=== PATIENT | female | born 1995 | race Two or more races ===

== ENCOUNTER 2019-09-28 00:14 | Emergency (ER) | payer MEDICAID ==
[~2019-09-28] VITALS: Ht 154.9 cm; Wt 57.7 kg
--- NOTE | 2019-09-28 00:39 | NUR ---
Patient presents to ER c/o palpitations since tonight. Patient states she has been sick with the flu recently. Patient denies CP or SOB. Denies nausea. Patient is in NAD. Respirations even and unlabored.
[2019-09-28 01:02] LABS: ALBUMIN 3.7 g/dL (3.4-5.0); ANION GAP 5 mmol/L (5-15); CALCIUM 8.9 mg/dL (8.5-10.1); CHLORIDE 107 mmol/L (98-107)
[2019-09-28 01:08] LABS: ALANINE AMINOTRANSFERASE 36 U/L (12-78); ALKALINE PHOSPHATASE 99 U/L (45-117); BILIRUBIN,TOTAL 0.3 mg/dL (0.2-1.0); CREATININE 0.63 mg/dL (0.55-1.02); T4 (THYROXINE) 11.8 mcg/dL (4.8-13.9); TOTAL PROTEIN 7.6 g/dL (6.4-8.2)
[2019-09-28 01:12] LABS: BASOPHILS # (AUTO) 0.01 x10^3/uL (0-0.1); BASOPHILS % (AUTO) 0 % (0-1); EOSINOPHILS % (AUTO) 0 % (1-7); LYMPHOCYTES # (AUTO) 1.54 x10^3/uL (1-3.4); LYMPHOCYTES % (AUTO) 46 % (22-44); MD NO; MEAN CORPUSCULAR HEMOGLOBIN 28.7 pg (27.0-34.8); MEAN CORPUSCULAR HGB CONC 33.7 g/dL (32.4-35.8); MEAN PLATELET VOLUME 8.4 fL (7.4-10.4); MONOCYTES # (AUTO) 0.26 x10^3/uL (0.2-0.8); MONOCYTES % (AUTO) 8 % (2-9); NEUTROPHILS # (AUTO) 1.54 x10^3/uL (1.8-6.8); NEUTROPHILS % (AUTO) 46 % (42-75); PLATELET COUNT 166 x10^3/uL (130-400); RED BLOOD COUNT 4.87 x10^6/uL (3.82-5.3); RED CELL DISTRIBUTION WIDTH 13.2 % (9.6-15.2)
[2019-09-28] MEDS ORDERED: POTASSIUM CHLORIDE 20 MEQ TAB.ER.PRT ONE (01:23)
[2019-09-28 01:26] VITALS: BP 109/65
--- NOTE | 2019-09-28 01:28 | NUR ---
Meds admin per sep. Discharge instructions given. All questions and concerns addressed. Patient ambulatory with a steady gait. Belongings with patient.
[2019-09-28] MEDS ORDERED: POTASSIUM CHLORIDE 20 MEQ TAB.ER.PRT PO ONE (01:30)
== END 2019-09-28 01:30 | disposition home or self-care (01) ==
LOC: ED 01:20
DX: R00.2 Palpitations (principal)
CPT/HCPCS: 36415; 80053; 83735; 84436; 84443; 84703; 85025; 93005; 99284; Q0177